=== PATIENT | female | born 1950 | race Caucasian/White ===

== ENCOUNTER 2023-04-07 13:00 | Outpatient (CLI) | payer MEDICARE, OTHER | END 2023-04-07 13:15 | disposition home or self-care (01) | LOC: LAB.N 13:00 | PROVIDERS: ATTEND Specialist | DX: R07.0 Pain in throat (principal) | CPT/HCPCS: 87070 ==

== ENCOUNTER 2024-04-26 12:41 | Outpatient (CLI) | payer MEDICARE, OTHER ==
--- NOTE | 2024-04-26 13:58 | DEXA Report ---
PROCEDURE: Dexa Spine and/or Hip INDICATIONS: OSTEOPOROSIS TECHNIQUE: Dual energy x-ray absorptiometry (DXA) was performed on a [employer] System. Regions measur ed are the AP Spine, femoral neck, and if needed forearm. COMPARISON: None FINDINGS: Lumbar Spine: Bone Mineral Density: 1.112 g/cm/cm,T score: -0.6. Left Femoral Neck: Bone Mineral Density: 0.865 g/cm/cm, T score: -1.2. Left Hip: Bone Mineral Density: 0.982 g/cm/cm,T score: -0.2. FRAX risk factors: None given. 10 year risk of major osteoporotic fracture: 9.5% major osteoporotic fracture = hip, clinical vertebral, proximal humerus, distal forearm 10 year risk of hip fracture: 1.4% (T score greater or equal to -1.0: NORMAL) (T score from -1.1 to -2.4: OSTEOPENIA) (T score less than or equal to -2.5 to: OSTEOPOROSIS) Impression: By WHO criteria, this patient has minimal osteopenia in the left femoral neck. Patients with diagnosis of osteoporosis or osteopenia should have regular bone mineral density assess ment. For those eligible for Medicare, routine testing is allowed once every 2 years. Testing frequ ency can be increased for patients who have rapidly progressing disease or for those who are receivin g medical therapy to restore bone mass. Reviewed by: Anh Talley MD on 04/26/2024 1:57 PM PDT Approved by: Anh Talley MD on 04/26/2024 1:57 PM PDT Station ID: [id number]
== END 2024-04-26 12:42 | disposition home or self-care (01) ==
LOC: DI 12:41
PROVIDERS: ATTEND Internal Medicine
DX: M85.88 Other specified disorders of bone density and structure, other site (principal)